=== PATIENT | female | born 1965 | race Caucasian/White ===

== ENCOUNTER 2017-01-16 12:50 | Inpatient (IN) | payer OTHER ==
[2017-01-16] VITALS (625 sets, daily range): BP systolic 125–136; BP diastolic 82–86; PULSE 84–95; TEMP 98.6; O2SAT 94–100
[~2017-01-16] VITALS: Ht 157.5 cm; Wt 65.0 kg
[2017-01-16] MEDS ORDERED: PERIACTIN 4MG TA4 MG PO (15:54)
[2017-01-16] MEDS ORDERED: MELAT3MGTAB (15:54)
[2017-01-16] MEDS ORDERED: LEXAPRO 10MG10 MG PO (15:55)
[2017-01-16] MEDS ORDERED: VISTARIL 2525 MG/CAP PO (15:55)
[2017-01-16 19:50] LABS: INR 1.4 (0.8-3.0); PROTHROMBIN TIME 15.3 SECONDS (9.7-12.8)
[2017-01-16 19:52] LABS: PARTIAL THROMBOPLASTIN TIME 32.5 SECONDS (26.0-37.0)
[2017-01-17] VITALS (694 sets, daily range): BP systolic 131–147; BP diastolic 69–104; PULSE 66–83; TEMP 97.4–98.8; O2SAT 84–100
[2017-01-17 06:30] LABS: ADJUSTED CALCIUM 8.8 mg/dL (8.4-10.2); ALBUMIN 4.2 gm/dL (3.5-5.0); BILIRUBIN,TOTAL 1.2 mg/dL (0.0-1.0); CREATININE, serum 0.66 mg/dL (0.52-1.25); TOTAL PROTEIN 7.5 gm/dL (6.4-8.2)
[2017-01-17 06:42] LABS: POTASSIUM 2.8 mmol/L (3.4-5.0)
[2017-01-17 06:59] LABS: THYROID STIMULATING HORMONE 2.64 uIU/mL (0.465-4.680)
[2017-01-17 07:34] LABS: MAGNESIUM 1.2 mg/dL (1.6-2.3)
[2017-01-17 20:57] LABS: T3 FREE (TRI-IODOTHYRONINE) 3.6 pg/mL (1.7-3.7)
[2017-01-18 03:28] VITALS: BP 124/80; PULSE 79; TEMP 98.7
[2017-01-18 07:49] VITALS: BP 146/89; BP 164/62; PULSE 64; PULSE 65; TEMP 98.3; TEMP 98.9
[2017-01-18 10:10] VITALS: BP 138/87; PULSE 78; TEMP 98.5
[2017-01-18 11:36] VITALS: BP 148/84; PULSE 71; TEMP 98.2
[2017-01-18] MEDS ORDERED: LIBRIUM 25M25 MG/CAP PO (13:31)
== END 2017-01-18 14:48 | disposition home or self-care (01) | DRG 897 ==
LOC: ICU 12:50 → MEDICAL 12:50
PROVIDERS: Internal Medicine Critical Care Medicine; Internal Medicine Pulmonary Disease
DX: F10.231 Alcohol dependence with withdrawal delirium (principal); F10.251 Alcohol dependence with alcohol-induced psychotic disorder with hallucinations; F43.12 Post-traumatic stress disorder, chronic; I10 Essential (primary) hypertension; F41.8 Other specified anxiety disorders
CPT/HCPCS: 90791-AI; 99223-AI; 99233-AI; 99238; J3411; J3475; J3480; J7030

== ENCOUNTER → 2018-02-08 | Outpatient (CLI) | payer OTHER ==
[~2018-02-08] VITALS: Ht 157.5 cm; Wt 66.0 kg
[2018-02-08] VITALS (9 sets, daily range): BP systolic 109–128; BP diastolic 65–95; PULSE 67–103
[~2018-02-08] MED LIST: ATARAX 10MG10 MG/TAB PO; FOLIC ACID 11 MG/TA1 PO; LEXAPRO 10MG10 MG PO; LIBRIUM 25M25 MG/CAP PO; MELAT3MGTAB; MELATONIN5 M1 SL; MULTI VITAMINS1 TAB PO; PERIACTIN 4MG TA4 MG PO; REVIA 50MG TABL50 MG PO; VISTARIL 2525 MG/CAP PO; VITAMIN D 1001000 IU PO
[2018-02-08 09:23] LABS: INR 1.2 (0.8-3.0); PROTHROMBIN TIME 13.5 SECONDS (9.7-12.8)
== END ==
LOC: COL.RAD 08:42
PROVIDERS: Physician Assistant
DX: K76.0 Fatty (change of) liver, not elsewhere classified (principal); R18.8 Other ascites
CPT/HCPCS: 26396